=== PATIENT | female | born 1970 | race Caucasian/White ===

== ENCOUNTER 2020-01-12 07:35 | Day surgery (SDC) | payer MEDICAID, OTHER ==
[2020-01-12] MEDS ORDERED: Dextrose 5%-Lactated Ringers 1,000 ML IV SCH (08:15)
[2020-01-12] MEDS ORDERED: Propofol 200 MG/20 ML SDV ONE ×2 (08:38→09:52)
[2020-01-12] MEDS ORDERED: Midazolam 1 MG/ML 2 ML SDV ONE (08:38)
[2020-01-12] MEDS ORDERED: fentaNYL 100 MCG/2 ML SDV ONE (08:38)
--- NOTE | 2020-01-20 16:02 | OR ---
DATE OF PROCEDURE: 01/12/2020 SURGEON: Davion Macias MD PREOPERATIVE DIAGNOSIS: Severe constipation. POSTOPERATIVE DIAGNOSES: Severe constipation with normal colonoscopic examination. OPERATIVE PROCEDURE: Flexible colonoscopy. ANESTHESIA: IV sedation. INDICATION FOR PROCEDURE: This is a bariatric surgery patient presenting with ongoing severe constipation for the last few months. The patient was started on Contrave in June, but the constipation started much later than that. She was seen by Gastroenterology in [place] and was started on Linzess, but had only been on that for 1 week. Plan is to proceed with a colonoscopy with biopsies and/or polypectomy as indicated. Potential risks of the procedure including bleeding and perforation were discussed, and the patient wishes to proceed. DETAILS OF PROCEDURE: The patient was taken to the operating room and placed in a left lateral decubitus position. IV sedation was administered, after which the initial digital rectal exam was performed and was unremarkable. The colonoscope was then passed into the rectum with retroflexion revealing uncomplicated hemorrhoidal columns. The scope was eventually passed to the level of the cecum. The prep was fair. There was quite a bit of liquid stool present, but for the purpose of ruling out any obstructive lesions, there certainly were not any present. Apart from that, there were no areas of diverticular disease, colitis, or obvious polyps or signs of neoplasia. The scope was then withdrawn, the procedure was then concluded, and the patient was taken to the recovery room in satisfactory condition. One item we will check on this is a TSH, as it has not been checked for about 2 years, to make sure there is no evidence of hypothyroid component to the constipation. 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 Otherwise, we will see her in bariatric followup in 3 months. Davion Macias MD /[id number]
== END 2020-01-12 11:18 | disposition home or self-care (01) ==
LOC: JP.SDS 07:35
PROVIDERS: ATTEND Surgery
DX: K59.00 Constipation, unspecified (principal); K64.9 Unspecified hemorrhoids
CPT/HCPCS: 36415; 45378; 84443; J2250; J2704; J3010; J7121